=== PATIENT | male | born 1990 | race American Indian/Alaskan Native ===

== ENCOUNTER 2020-09-27 20:16 | Emergency (ER) | payer SELFPAY ==
[2020-09-27] MEDS ORDERED: ONDANSETRON 4 MG/2 ML INJ ONE (21:27)
[2020-09-27] MEDS ORDERED: ONDANSETRON 4 MG/2 ML INJ IV ONE (21:45)
[2020-09-27 22:00] LABS: Basophils % (Auto) 0.5 % (0.0-1.8); Hematocrit 44.6 % (35.5-45.6); Hemoglobin 15.5 gm/dl (11.8-15.2); Lymphocytes # (Auto) 1.2 K/mm3 (1.2-5.4); Lymphocytes % (Auto) 18.1 % (13.4-35.0); Mean Corpuscular HGB Conc 35 % (32-34); Mean Corpuscular Volume 100 fl (84-94); Monocytes # (Auto) 0.2 K/mm3 (0.0-0.8); Monocytes % (Auto) 3.5 % (0.0-7.3); Platelet Count 307 K/mm3 (140-440); Red Blood Count 4.47 M/mm3 (3.65-5.03); Red Cell Distribution Width 13.1 % (13.2-15.2)
--- NOTE | 2020-09-27 22:01 | XRay Report ---
CHEST 2 VIEWS INDICATION / CLINICAL INFORMATION: MAIN. Chest pain COMPARISON: None available. FINDINGS: SUPPORT DEVICES: None. HEART / MEDIASTINUM: No significant abnormality. LUNGS / PLEURA: No significant pulmonary or pleural abnormality. No pneumothorax. ADDITIONAL FINDINGS: No significant additional findings. IMPRESSION: 1. No acute findings. Signer Name: Francisco Gaona MD Signed: 09/27/2020 9:56 PM Workstation Name: [id number]
[2020-09-27 22:17] LABS: Alanine Aminotransferase 73 units/L (7-56); Albumin 4.4 g/dL (3.9-5); BUN/Creatinine Ratio 11; Blood Urea Nitrogen 11 mg/dL (9-20); Calcium 9.5 mg/dL (8.4-10.2); Hemolysis Index 24
[2020-09-28] MEDS ORDERED: SODIUM CHLORIDE 0.9% 1000 ML 1,000 ML IV ONE (04:11)
[2020-09-28] MEDS ORDERED: ONDANSETRON 4 MG/2 ML INJ IV ONE (04:11)
[2020-09-28] MEDS ORDERED: HYDROmorphone 1 MG/1 ML INJ IV ONE (04:11)
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
--- NOTE | 2020-09-28 05:52 | Cat Scan Report ---
CT OF THE ABDOMEN AND PELVIS WITH INTRAVENOUS CONTRAST INDICATION / CLINICAL INFORMATION: Abdominal pain with nausea. TECHNIQUE: The patient received 100 cc Omnipaque [address] scans at this location are performed using CT dose reduction for ALARA by means of automated exposure control. COMPARISON: None available. FINDINGS: ABDOMEN: There is a moderately large staghorn calculus in the right pelvicalyceal system centrally an d inferiorly. The calculus measures approximately 3.5 cm in length. The density of the calculus is 14 31 Hounsfield units. There is no evidence of hydronephrosis. A small nonobstructive calculus is prese nt in the lower pole of the left kidney. The liver, spleen, gallbladder, bile ducts, pancreas and adrenal glands demonstrate no significant ab normality. There are surgical changes involving the right colon. There is a moderate amount stool thr oughout the colon. I see no evidence of bowel obstruction, wall thickening or free air. No adenopathy is identified. The lung bases are clear. PELVIS: The distal ureters, urinary bladder, prostate gland and seminal vesicles demonstrate no signi ficant abnormality. The appendix is not seen. There is no evidence of diverticulitis. No abnormal mas s or fluid collection is identified. There is no evidence of hernia. No acute osseous abnormality is seen. IMPRESSION: 1. No acute intra-abdominal disease is identified. 2. Moderately large nonobstructive staghorn calculus in the right kidney. Tiny nonobstructive left re nal calculus. Signer Name: Jamie Guevara MD Signed: 09/28/2020 5:47 AM Workstation Name: [id number]
[2020-09-28 06:16] LABS: Bilirubin,Urine NEG (Negative); Blood,Urine LG (Negative); Color,Urine Yellow (Yellow); Mucus,Urine 2+ /HPF; Urobilinogen,Urine < 2.0 mg/dL (<2.0)
[2020-09-28 06:17] LABS: Protein,Urine >500 mg/dL (Negative)
== END 2020-09-28 06:45 | disposition home or self-care (01) ==
LOC: ED 20:16
DX: N20.0 Calculus of kidney (principal); R07.89 Other chest pain; R11.2 Nausea with vomiting, unspecified; F12.10 Cannabis abuse, uncomplicated; Z79.899 Other long term (current) drug therapy
CPT/HCPCS: 36415; 71046; 74177; 80053; 81001; 83690; 85025; 87086; 96361; 96374; 96375; 96376; 99284; J1170; J2405; J7030; Q9967